=== PATIENT | male | born 1980 | race Asian ===

== ENCOUNTER 2022-05-29 09:29 | Emergency (ER) | payer MEDICAID ==
[~2022-05-29] VITALS: Ht 160 cm; Wt 91.0 kg
[2022-05-29] MEDS ORDERED: ACETAMINOPHEN 325MG TABLET PO ONE (12:00)
[2022-05-29] MEDS ORDERED: KETOROLAC 60MG/2ML VIAL IM ONE (12:00)
[2022-05-29] MEDS ORDERED: PREDNISONE 20MG TABLET PO ONE (12:00)
[2022-05-29] MEDS ORDERED: COLCHICINE 0.6MG TABLET PO ONE (12:00)
[2022-05-29] MEDS ORDERED: IBUP-2028 MT (12:01)
[2022-05-29] MEDS ORDERED: COLC0.6C3 PO (12:01)
[2022-05-29] MEDS ORDERED: P20 PO (12:01)
[2022-05-29 12:13] VITALS: BP 127/87
== END 2022-05-29 12:18 | disposition home or self-care (01) ==
LOC: ER 09:29
DX: M10.9 Gout, unspecified (principal); E11.9 Type 2 diabetes mellitus without complications
CPT/HCPCS: 73562; 96372; 99283; J1885; J7512